=== PATIENT | male | born 1935 | race Caucasian/White ===

== ENCOUNTER 2023-09-26 19:55 | Emergency (ER) | payer OTHER ==
[~2023-09-26] VITALS: Ht 170.2 cm; Wt 67.6 kg
[2023-09-26 20:26] LABS: BASOPHILS % (AUTO) 0.5 % (0.0-2.0); EOSINOPHILS # (AUTO) 0.2 K/uL (0.0-0.7); EOSINOPHILS % (AUTO) 1.9 % (0.0-7.0); HEMATOCRIT 42.9 % (36.7-47.1); HEMOGLOBIN 14.3 g/dL (12.5-16.3); LYMPHOCYTES # (AUTO) 0.8 K/uL (0.8-4.8); LYMPHOCYTES % (AUTO) 10.6 % (20.5-51.5); MEAN CORPUSCULAR HEMOGLOBIN 30.8 uug (23.8-33.4); MEAN CORPUSCULAR HGB CONC 33 g/dL (32.5-36.3); MEAN CORPUSCULAR VOLUME 92.5 fL (73.0-96.2); MONOCYTES # (AUTO) 0.4 K/uL (0.1-1.30); MONOCYTES % (AUTO) 5.6 % (0.0-11.0); NEUTROPHILS # (AUTO) 6.5 K/uL (1.8-8.9); NEUTROPHILS % (AUTO) 81.4 % (38.5-71.5); PLATELET COUNT (AUTO) 150 K/uL (152-348); RED BLOOD CELL COUNT(AUTO) 4.63 MIL/uL (4.06-5.63); RED CELL DISTRIBUTION WIDTH 15.6 % (12.1-16.2)
[2023-09-26 20:33] LABS: DIFFERENTIAL COMMENT 1
[2023-09-26 20:37] LABS: CALCIUM 9.6 mg/dL (8.5-10.1); CARBON DIOXIDE 27 mmol/L (21-32); CHLORIDE 103 mmol/L (98-107); CREATININE 0.9 mg/dL (0.6-1.3); GLUCOSE 153 mg/dL (74-106); POTASSIUM 3.3 mmol/L (3.5-5.1); SODIUM SERUM 139 mmol/L (136-145); UREA NITROGEN, BLOOD 13 mg/dL (7-18)
[2023-09-26 20:53] LABS: ALANINE AMINOTRANSFERASE 14 U/L (16-63); ALBUMIN 3.5 g/dL (3.4-5.0); ALKALINE PHOSPHATASE 92 U/L (50-136); ASPARTATE AMINOTRANSFERASE 26 U/L (15-37); BILIRUBIN,DIRECT 0.2 mg/dL (0.0-0.2); BILIRUBIN,TOTAL 0.9 mg/dL (0.2-1.0); NT-PRO BNP 4413 pg/mL (0-125); TOTAL PROTEIN, SERUM 7.3 g/dL (6.4-8.2)
[2023-09-26] MEDS ORDERED: ATORVASTATIN 20 MG TABLET ONE (22:02)
[2023-09-26] MEDS ORDERED: METOPROLOL TARTRATE 50 MG TABLET ONE (22:02)
[2023-09-26] MEDS ORDERED: ENOXAPARIN SODIUM 80 MG/0.8 ML DISP.SYRIN SQ ONE (22:02)
[2023-09-26 22:10] VITALS: BP 180/78
[2023-09-26] MEDS: METOPROLOL TARTRATE 50 MG TABLET PO ONE (22:10)
[2023-09-26] MEDS: ATORVASTATIN 40 MG TABLET PO SCH (22:10)
[2023-09-26] MEDS ORDERED: ATOR20TA PO (22:33)
[2023-09-26] MEDS ORDERED: TRIA10.8 BNOSTRILS (22:33)
[2023-09-26] MEDS ORDERED: METO100T14 PO (22:33)
[2023-09-26] MEDS ORDERED: AMLO5TAB4 PO (22:33)
[2023-09-26] MEDS ORDERED: ISOS60TA72 PO (22:33)
[2023-09-26] MEDS ORDERED: HYDR-4075 PO (22:33)
[2023-09-26] MEDS ORDERED: TRIA10.8 NS (22:33)
[2023-09-26] MEDS ORDERED: FURO20TA4 PO (22:33)
[2023-09-26] MEDS ORDERED: MELO-105 PO (22:33)
[2023-09-26] MEDS ORDERED: METF-440 PO (22:33)
[2023-09-26 23:23] VITALS: O2SAT 98
== END 2023-09-26 23:30 | disposition short-term general hospital (02) ==
LOC: ER 20:00
DX: I21.9 Acute myocardial infarction, unspecified (principal); E78.5 Hyperlipidemia, unspecified; Z79.84 Long term (current) use of oral hypoglycemic drugs; Z98.890 Other specified postprocedural states; Z79.899 Other long term (current) drug therapy; Z20.822 Contact with and (suspected) exposure to COVID-19
CPT/HCPCS: 36415; 71045; 84484; 85025; 85730; 93005; A4606; A4663; J1650